=== PATIENT | female | born 1940 | race Caucasian/White ===

== ENCOUNTER 2025-02-17 17:45 | Emergency (ER) | payer OTHER ==
[~2025-02-17] VITALS: Ht 170.2 cm; Wt 64.0 kg
[2025-02-17 17:48] VITALS: TEMP 98.3
[2025-02-17] MEDS: ACETAMINOPHEN 325 MG TABLET PO ONE (18:43)
[2025-02-17] MEDS: IV NS 0.9% 500 ML BAG IV ONE ×2 (18:43→22:59)
[2025-02-17 18:47] LABS: PLATELET COUNT (AUTO) 201 K/uL (150-450); RED BLOOD CELL COUNT(AUTO) 5.01 MIL/uL (4.0-5.2); RED CELL DISTRIBUTION WIDTH 13.1 % (11.5-15.0); WHITE BLOOD COUNT (AUTO) 11.9 K/uL (4.3-11.0)
[2025-02-17 18:56] LABS: CALCIUM, SERUM 9.0 mg/dL (8.5-10.1); CREATININE 1.1 mg/dL (0.6-1.3); SODIUM SERUM 143 mmol/L (136-145); UREA NITROGEN, BLOOD 17 mg/dL (7-18)
[2025-02-17 19:00] LABS: INR 1.09 (0.91-1.10)
[2025-02-17 19:02] LABS: ASPARTATE AMINOTRANSFERASE 35 U/L (15-37); TOTAL PROTEIN, SERUM 7.6 g/dL (6.4-8.2)
[2025-02-17] MEDS ORDERED: DILTIAZEM HCL 50 MG IV ONE (20:21)
[2025-02-17] MEDS: DILTIAZEM HCL 50 MG IV IV ONE ×2 (20:25→21:27)
[2025-02-17] MEDS ORDERED: NICARDIPINE IN DEXTROSE,ISO-OS 200 ML IV ONE (20:59)
[2025-02-17] MEDS: NICARDIPINE HCL 40 MG in IV NS 0.9% 184 ML IV PRN (21:49)
[2025-02-17 21:50] LABS: APPEARANCE,URINE CLEAR (CLEAR); BLOOD, URINE 2+ Ery/uL (NEGATIVE); LEUKOCYTE ESTERASE ,URINE 2+ (NEGATIVE); NITRITE, URINE NEGATIVE (NEGATIVE); UGLUCOSE NEGATIVE (NEGATIVE)
[2025-02-17 22:11] LABS: ADD URINE CULTURE YES; COARSE GRANULAR CASTS,URINE Few /LPF (None Seen); SQUAMOUS EPITHELIAL CELL,UR Few /HPF (None Seen)
[2025-02-17] MEDS ORDERED: DIGOXIN 0.125 MG TABLET ONE ×2 (22:22→22:53)
[2025-02-17] MEDS: DIGOXIN 0.25 MG TABLET PO ONE ×2 (22:26→23:10)
[2025-02-17] MEDS ORDERED: LABETALOL 20 MG/4 ML VIAL ONE (23:58)
[2025-02-18] MEDS: LABETALOL 20 MG/4 ML VIAL IV ONE
[2025-02-18] MEDS ORDERED: METOPROLOL TARTRATE INJ 5 MG/5 ML AMPUL ONE (00:26)
[2025-02-18] MEDS: METOPROLOL TARTRATE INJ 5 MG/5 ML AMPUL IV ONE (00:33)
[2025-02-18] MEDS ORDERED: CEFTRIAXONE 1 G VIAL ONE (00:58)
[2025-02-18] MEDS: CEFTRIAXONE 1GM BAG (ER ONLY) 50 ML IV ONE (01:05)
[2025-02-18 01:30] VITALS: BP 131/82; O2SAT 95
== END 2025-02-18 03:08 | disposition short-term general hospital (02) ==
LOC: ER 17:50
DX: I60.8 Other nontraumatic subarachnoid hemorrhage (principal); I48.91 Unspecified atrial fibrillation; N39.0 Urinary tract infection, site not specified; I10 Essential (primary) hypertension; E78.5 Hyperlipidemia, unspecified; Z79.01 Long term (current) use of anticoagulants; Z95.0 Presence of cardiac pacemaker; Z79.899 Other long term (current) drug therapy
CPT/HCPCS: 99291; 72125; 96365; 96361; 96375 ×2; 93005; 71045; 96376; 73080; 73503; 70450; 85025; 80048; 83690; 80076; 81001; 36415; 84484 ×2; 85730; 96367; 87040 ×2; J3490 ×3; J7040 ×2; A4223; J0696; 73502; 87086-TC